=== PATIENT | female | born 1965 | race Caucasian/White ===

== ENCOUNTER 2019-12-02 11:58 | Outpatient (CLI) | payer SELFPAY ==
--- NOTE | ~2019-12-02 | XR_ITS ---
XR elbow RT min 3V 12/02/2019 12:25 Indication: Right elbow pain Procedure: 4 views right elbow Comparison: No prior studies for comparison. Findings: No significant joint effusion. There is soft tissue swelling adjacent to the medial humeral epicondyle. There is a corticated ossific density medial to the elbow seen on oblique view, likely s equela of remote trauma. No acute fractures identified. There are mild degenerative changes of the el bow. Impression: 1: No acute fracture. 2: Soft tissue swelling adjacent to the medial humeral epicondyle, nonspecific. If there is concern f or internal derangement of the elbow, correlation with MRI is recommended. Reviewed, dictated and finalized at location A. Impression: 1: No acute fracture. 2: Soft tissue swelling adjacent to the medial humeral epicondyle, nonspecific. If there is concern for internal derangement of the elbow, correlation with MR I is recommended.
== END 2019-12-02 11:59 | disposition home or self-care (01) ==
LOC: ANHIMG 12:12
PROVIDERS: PCP Family Medicine; Visit Provider Family Medicine
DX: S59.909A Unspecified injury of unspecified elbow, initial encounter (principal); M79.89 Other specified soft tissue disorders
CPT/HCPCS: 73080

== ENCOUNTER 2019-12-22 12:51 | Outpatient (CLI) | payer OTHER, SELFPAY ==
--- NOTE | ~2019-12-22 | MR_ITS ---
EXAMINATION: MR elbow RT wo con DATE: 12/22/2019 13:58 INDICATION: Posterior and medial right elbow pain, swelling and bruising post injury 3 weeks prior. TECHNIQUE: Magnetic resonance imaging (MRI) of the right elbow was performed without intravenous cont rast. Sequences included coronal, axial, and sagittal PD-weighted FS FSE and coronal, axial, and sagi ttal PD-weighted FSE. COMPARISON: None FINDINGS: Osseous/other: Normal alignment. Normal marrow signal with no marrow edema, fracture, osteochondral lesion or patho logic marrow replacing process. Mild osteoarthritis with regions of partial thickness cartilage loss in all 3 compartments of the right elbow joint. Tendons: Triceps, biceps brachii and brachialis tendons are normal. Moderate tendinopathy of the common flexo r tendon wad without discrete tear. There is feathery muscular edema extending into the proximal aspe ct of the flexor digitorum superficialis muscle consistent with low-grade muscle strain. Additional f eathery muscular edema at the ulnar side of the distal brachialis muscle also consistent with low-gra de strain. Additional moderate tendinopathy of the common extensor tendon wad with small intrasubstan ce partial-thickness tear at its lateral epicondylar origin. Ligaments: The lateral collateral ligament complex is normal. There is prominent thickening, mild increased sign al and small heterotopic ossicles along the medial collateral ligament complex consistent with chroni c or acute on chronic moderate grade partial tear. Cubital tunnel: Cubital tunnel is unremarkable with normal signal and caliber of the ulnar nerve. Fluid: Small glenohumeral joint effusion collecting primarily at the coronoid fossa. Focal subcutaneous eran a posterior to the olecranon process. IMPRESSION: 1. Moderate tendinopathy at the common flexor and extensor tendon wads with mild partial-thickness in trasubstance tear at the lateral epicondylar origin of the common extensor tendon wad. 2. Moderate grade partial tear of the medial collateral ligament complex with heterotopic ossificatio n which could be either chronic or acute on chronic. 3. Small low-grade strains of the talus and fracture digitorum superficialis muscles. 4. Mild osteoarthritis at the right elbow with small likely reactive joint effusion. No acute osseous abnormality. Reviewed, dictated and finalized at location A. IMPRESSION: 1. Moderate tendinopathy at the common flexor and extensor tendon wads with mil d partial-thickness intrasubstance tear at the lateral epicondylar origin of th e common extensor tendon wad. 2. Moderate grade partial tear of the medial collateral ligament complex with h eterotopic ossification which could be either chronic or acute on chronic. 3. Small low-grade strains of the talus and fracture digitorum superficialis mu scles. 4. Mild osteoarthritis at the right elbow with small likely reactive joint effu sarah. No acute osseous abnormality.
== END 2019-12-22 12:52 | disposition home or self-care (01) ==
PROVIDERS: PCP Family Medicine; Visit Provider Orthopaedic Surgery
DX: S59.909A Unspecified injury of unspecified elbow, initial encounter (principal); X58.XXXA Exposure to other specified factors, initial encounter; M19.021 Primary osteoarthritis, right elbow
CPT/HCPCS: 73221

== ENCOUNTER 2022-10-09 12:43 | Outpatient (CLI) | payer OTHER, SELFPAY ==
--- NOTE | ~2022-10-09 | XR_ITS ---
EXAMINATION: XR chest 2V DATE: 10/09/2022 13:17 INDICATION: Cough TECHNIQUE: PA and lateral views of the chest are obtained. COMPARISON: 10/28/2015 FINDINGS: The lungs are free of acute opacities. No pleural effusion or pneumothorax. The cardiomedia stinal silhouette is normal. There is mild thoracic spondylosis. IMPRESSION: 1. No acute cardiopulmonary abnormality. Reviewed, dictated and finalized at location F.
== END 2022-10-09 12:44 ==
LOC: MICIMG 12:46
PROVIDERS: PCP Family Medicine; Visit Provider Physician Assistant Medical
DX: R05.9 Cough, unspecified (principal); R06.00 Dyspnea, unspecified
CPT/HCPCS: 71046

== ENCOUNTER 2022-12-18 10:53 | Outpatient (CLI) | payer OTHER, SELFPAY ==
--- NOTE | ~2022-12-18 | XR_ITS ---
EXAMINATION: XR ankle RT min 3V INDICATION: Right ankle pain TECHNIQUE: Four views of the right ankle are obtained. COMPARISON: None available FINDINGS: Ankle alignment is normal. No fracture is identified. The soft tissues are unremarkable. Po sterior and plantar calcaneal enthesophytes are noted. There appears to be at least moderate osteoart hritis in the midfoot. IMPRESSION: 1. No acute osseous abnormality. Reviewed, dictated and finalized at location A.
== END 2022-12-18 10:54 ==
LOC: MICIMG 10:55
PROVIDERS: PCP Family Medicine; Visit Provider Physician Assistant
DX: M25.579 Pain in unspecified ankle and joints of unspecified foot (principal)
CPT/HCPCS: 73610

== ENCOUNTER 2023-01-14 11:29 | Outpatient (CLI) | payer OTHER, SELFPAY ==
--- NOTE | ~2023-01-14 | XR_ITS ---
EXAMINATION: XR abdomen/kub 1V DATE: 01/14/2023 12:00 INDICATION: Unspecified abdominal pain. TECHNIQUE: A supine view of the abdomen on 2 radiographs was obtained. COMPARISON: None. FINDINGS: There are no dilated loops of bowel. There is a moderate-sized volume of stool in the colon . Small calcifications in the pelvis are likely phleboliths. IMPRESSION: 1. Normal bowel gas pattern. 2. Small calcifications in the pelvis are likely phleboliths but small distal ureteral stone cannot b e excluded. Reviewed, dictated and finalized at location E. IMPRESSION: 1. Normal bowel gas pattern. 2. Small calcifications in the pelvis are likely phleboliths but small distal u reteral stone cannot be excluded.
== END 2023-01-14 11:30 ==
LOC: MICIMG 11:33
PROVIDERS: PCP Physician Assistant Medical; Visit Provider Physician Assistant Medical
DX: R10.9 Unspecified abdominal pain (principal)
CPT/HCPCS: 74018

== ENCOUNTER 2023-01-15 13:01 | Outpatient (CLI) | payer OTHER, SELFPAY ==
--- NOTE | ~2023-01-15 | CT_ITS ---
Non-contrast CT scan of the Abdomen and Pelvis Clinical indication: Kidney stone Technique: 2.5 mm axial scans were obtained through the abdomen and pelvis without intravenous or or al contrast. Dose reduction technique was used on this scan by utilizing automated exposure control a nd iterative reconstruction technique. The dose-length product (DLP) was 754.42 mGy-cm. Findings: Images through the lung bases reveal no abnormalities. 4 mm nonobstructing left renal stone present. No right renal stone. No ureteral stone or hydronephros is on either side. The liver, spleen, pancreas, gallbladder, and adrenals appear normal. There is no aortic aneurysm. There is no evidence of bowel obstruction. Images through the pelvis were performed. There is no evidence of ascites or lymphadenopathy. Urinary bladder unremarkable. No adnexal mass seen. Impression: 4 mm nonobstructing left renal stone. Reviewed, dictated and finalized at [facility]. Impression: 4 mm nonobstructing left renal stone.
== END 2023-01-15 13:02 ==
PROVIDERS: PCP Family Medicine; Visit Provider Physician Assistant Medical
DX: N20.0 Calculus of kidney (principal)
CPT/HCPCS: 74176

== ENCOUNTER 2024-05-22 11:14 | Outpatient (CLI) | payer OTHER, SELFPAY ==
--- NOTE | 2024-05-22 11:34 | ECG_ITS ---
Test Date: 2024-05-22 11:44:14 Measurements Intervals [place] Rate: 69 P: 134 LA: 130 QRS: 266 QRSD: 176 T: 66 QT: 468 QTc: 505 Interpretive Statements ELECTRONIC ATRIAL PACEMAKER ELECTRONIC VENTRICULAR PACEMAKER NO FURTHER INTERPRETATION IS POSSIBLE ATYPICAL ECG No previous ECG available for comparison Electronically Signed On 05-22-2024 11:45:19 BOBBIN DOFFER by Chris Alex D.O.
[2024-05-22 11:39] LABS: Basophils Percent Auto 0.6 % (0.2-1.2); Eosinophils Absolute Auto 0.2 K/mm3 (0-0.3); Eosinophils Percent Auto 2.3 % (0-4.4); Hematocrit 39.8 % (37.0-47.0); Hemoglobin 13.4 g/dL (12.0-15.0); Immature Granulocyte Absolute 0.02 K/mm3 (0.00-0.031); Immature Granulocyte Percent A 0.3 % (0-0.5); Lymphocytes Absolute Auto 2.37 K/mm3 (0.9-3.2); Lymphocytes Percent Auto 36.5 % (18.3-44.2); Mean Corpuscular HGB Conc 33.7 g/dl (32-36); Mean Corpuscular Hemoglobin 32.2 pg (26-34); Mean Corpuscular Volume 95.7 fl (80-100); Mean Platelet Volume 8.8 fl (7.4-10.4); Monocytes Absolute Auto 0.5 K/mm3 (0.1-0.6); Monocytes Percent Auto 7.9 % (2.6-8.5); Neutrophils Absolute Auto 3.4 K/mm3 (1.3-6.7); Neutrophils Percent Auto 52.4 % (45.5-73.1); Platelet Count Result 201 k/mm3 (150-375); Red Blood Count 4.16 M/mm3 (4.2-5.4); Red Cell Distribution Width 12.5 % (11.5-14.5); White Blood Count 6.5 K/mm3 (4.5-10.0)
[2024-05-22 12:01] LABS: Add Urine Microscopic? YES; Appearance Urine Clear (Clear); Bacteria Urine Rare /hpf; Bilirubin Urine Negative (Negative); Blood Urine Negative (Negative); Color Urine Yellow (Yellow); Glucose Urine UA Negative (Negative); Ketones Urine Negative (Negative); Leukocyte Esterase Ur 1+ LEU/UL (Negative); Nitrate Urine Negative (Negative); Non Pathogenic Casts 0-2; Protein Urine Negative (Negative); RBC Urine 0-2 /hpf (0-2); Squamous Epithelial Cell Urine Occasional /hpf (Few); Urobilinogen Urine 0.2 mg/dL (<2.0)
[2024-05-22 12:05] LABS: Anion Gap 5 mmol/L (4-12); Blood Urea Nitrogen 22 mg/dL (7-17); Calcium 9.3 mg/dL (8.4-10.2); Carbon Dioxide 32 mmol/L (22-30); Chloride 103 mmol/L (98-107); Estimated Glomerular Filt Rate 57; Glucose 106 mg/dL (65-110); Potassium 4.4 mmol/L (3.4-5.0); Sodium 140 mmol/L (137-145)
[2024-05-22 13:03] LABS: Hemoglobin A1C 5.7 % (<5.7)
== END 2024-05-22 11:15 | disposition home or self-care (01) ==
PROVIDERS: PCP Family Medicine; Visit Provider Nurse Practitioner Family
DX: E11.9 Type 2 diabetes mellitus without complications (principal); E53.8 Deficiency of other specified B group vitamins; E78.2 Mixed hyperlipidemia; I42.8 Other cardiomyopathies; I50.9 Heart failure, unspecified; R53.83 Other fatigue; I11.0 Hypertensive heart disease with heart failure; Z95.0 Presence of cardiac pacemaker
CPT/HCPCS: 36415; 80048; 81001; 83036; 85025; 87086; 93005

== ENCOUNTER 2024-07-29 08:05 | Outpatient (CLI) | payer OTHER, SELFPAY ==
[2024-07-29 09:33] LABS: Basophils Percent Auto 0.5 % (0.2-1.2); Eosinophils Absolute Auto 0.2 K/mm3 (0-0.3); Eosinophils Percent Auto 2.8 % (0-4.4); Hematocrit 39.3 % (37.0-47.0); Hemoglobin 13.2 g/dL (12.0-15.0); Immature Granulocyte Absolute 0.02 K/mm3 (0.00-0.031); Immature Granulocyte Percent A 0.4 % (0-0.5); Lymphocytes Percent Auto 35.5 % (18.3-44.2); Mean Corpuscular HGB Conc 33.6 g/dl (32-36); Mean Corpuscular Hemoglobin 32.1 pg (26-34); Mean Corpuscular Volume 95.6 fl (80-100); Mean Platelet Volume 8.4 fl (7.4-10.4); Monocytes Absolute Auto 0.5 K/mm3 (0.1-0.6); Monocytes Percent Auto 8.9 % (2.6-8.5); Neutrophils Absolute Auto 2.9 K/mm3 (1.3-6.7); Neutrophils Percent Auto 51.9 % (45.5-73.1); Platelet Count Result 176 k/mm3 (150-375); Red Blood Count 4.11 M/mm3 (4.2-5.4); Red Cell Distribution Width 12.4 % (11.5-14.5); White Blood Count 5.6 K/mm3 (4.5-10.0)
[2024-07-29 09:41] LABS: Add Urine Microscopic? YES; Appearance Urine Clear (Clear); Bacteria Urine None Seen /hpf; Bilirubin Urine Negative (Negative); Blood Urine Negative (Negative); Color Urine Yellow (Yellow); Glucose Urine UA Negative (Negative); Ketones Urine Negative (Negative); Leukocyte Esterase Ur Trace LEU/UL (Negative); Nitrate Urine Negative (Negative); Non Pathogenic Casts 0-2; Protein Urine Negative (Negative); RBC Urine 0-2 /hpf (0-2); Specific Grav Ur 1.015 (1.001-1.035); Squamous Epithelial Cell Urine None Seen /hpf (Few); Urobilinogen Urine 0.2 mg/dL (<2.0); WBC Urine 0-5 /hpf (0-3)
[2024-07-29 09:45] LABS: Albumin Level 4.5 g/dL (3.5-5.1); Anion Gap 11 mmol/L (4-12); Blood Urea Nitrogen 26 mg/dL (7-17); Calcium 9.2 mg/dL (8.4-10.2); Carbon Dioxide 27 mmol/L (22-30); Chloride 100 mmol/L (98-107); Estimated Glomerular Filt Rate 55; Glucose 88 mg/dL (65-110); Partial Thromboplastin Time 35.6 Seconds (22.3-36.8); Potassium 4.2 mmol/L (3.4-5.0); Prothrombin Time 13.6 Seconds (11.1-14.7); Sodium 138 mmol/L (137-145)
[2024-07-29 09:49] LABS: Urine Cotinine NEGATIVE
[2024-07-29 11:00] LABS: MRSA (PCR) DETECTED (NOT DETECTE)
--- OUTSIDE RECORDS SUMMARY | 2024-07-30 21:38 | XMS_ITS | Clinical Summary ---
Author Organization [facility] Address [address] [place] [address] Care Team Providers Care Personal Companion Name Role Phone Unknown, Provider Primary Care Provider Unavaila ble Source Comments [facility] Affiliates and Associated Physician Practices is amultiple site organization consisting of ambulatory clinics and hospital sitesin [place], [place], [place] and [place]. This disclosure is being madepursuant to the Care Everywhere program and may not contain all information available regarding this patient. Last updated 18.[facility] [employer] Allergies Active Allergy Reactions Criticality Noted Date Comments Minocycline Rash Medium 03/02/2021 Medications * Be aware that medications may not be up to date on this document. Alwaysverify current medications with the patient. Medication Sig Dispensed Refills Start Date End Date Status metFORMIN (GLUCOPHAGE) 500 MG tablet Take 500 mg by mouth 2 times daily with morning and evening meal Active FLUOXETINE HCL PO Active ATENOLOL PO Active ATORVASTATIN CALCIUM PO Active CLONAZEPAM PO Active Montelukast Sodium (SINGULAIR PO) Active INDOMETHACIN PO Active azithromycin (ZITHROMAX) 250 MG tabletIndications:Acut e sinusitis, recurrence not specified, unspecified location Take 2 tabs today, then 1 tab daily for next 4 days 6 tablet 03/02/2021 Active Active Problems No known active problems Social History Tobacco Use Types Packs/Day Years Used Date Smoking Tobacco: Some Days Smokeless Tobacco: Never Sex and Gender Information Value Date Recorded Sex Assigned at Not on file Gender Identity Not on file Sexual Orientation Not on file Last Filed Vital Signs Vital Sign Reading Time Taken Comments Blood Pressure 118/68 03/02/2021 12:33 PM CDT Pulse 68 03/02/2021 12:33 PM CDT Temperature 36.9 ??C (98.5 ??F) 03/02/2021 12:33 PM C DT Respiratory Rate 17 03/02/2021 12:33 PM CDT Oxygen Saturation - - Inhaled Oxygen Concentration - - Weight 97.5 kg (215 lb) 03/02/2021 12:33 PM CDT Height 171.5 cm (5' 7.5 ) 03/02/2021 12:33 PM CD T Body Mass Index 33.18 03/02/2021 12:33 PM CDT Plan of Treatment Health Maintenance Due Date Last Done Comments COLOGUARD (AGES 45-75) - COL ON CA SCREENING 1965 COLON MONITORING 1965 COLONOSCOPY - COLON CA SCREENING 1965 CT COLONOGRAPHY - COLON CA SCREENING 1965 Colorectal Cancer Screening 1965 FIT - COLON CA SCREENING 1965 FLEX SIG - COLON CA SCREENING 1965 MAMMOGRAM 1965 PAP SMEAR 1965 HIV SCREENING 1980 HEPATITIS C SCREENING 10/14/1983 DTAP/TDAP/TD VACCINES (1 - Tdap) 1984 HEPATITIS B VACCINE (1 of 3 - 19+ 3-dose series) 1984 PNEUMOCOCCAL VACCINE 50+ (1 of 2 - PCV) 1984 PNEUMOCOCCAL VACCINE (1 of 2 - PCV) 1984 ZOSTER VACCINE (1 of 2) 10/19/2015 SCREENING FOR DIABETES 03/02/2021 COVID-19 VACCINE (1 - 2023-2 5 season) 2024 INFLUENZA VACCINE (#1) 2024 DEPRESSION SCREENING 07/08/2024 HIB VACCINE Aged Out No longer eligi ble based on patient's age to complete this topic HPV VACCINE Aged Out No longer eligi ble based on patient's age to complete this topic MENINGOCOCCAL (Group B) VACCINE Aged Out No longer eligible based on patient's age to complete this topic MENINGOCOCCAL VACCINE Aged Out No edgar abdirashid eligible based on patient's age to complete this topic Care Teams Personal Companion Relationship Specialty Start Date End Date Unknown, Provider PCP - General 03/02/21
--- OUTSIDE RECORDS SUMMARY | 2024-07-30 21:38 | XMS_ITS | Patient Health Summary ---
Author Organization [facility] Address [address] [place] [address] Care Team Providers Care Pit Boss Name Role Phone Unknown, Provider Primary Care Provider Unavaila ble Note from [facility],non-owned Affiliates and Associated Physician Practices is amultiple site organization consisting of ambulatory clinics and hospital sitesin [place], [place], [place] and [place]. This disclosure is being madepursuant to the Care Everywhere program and may not contain all information available regarding this patient. Last updated 18.[facility] [employer] Allergies * Minocycline(Rash) -Medium Criticality Medications * Be aware that medications may not be up to date on this document. Alwaysverify current medications with the patient. * metFORMIN (GLUCOPHAGE) 500 MG tablet Take 500 mg by mouth 2 times daily with morning and evening meal * FLUOXETINE HCL PO * ATENOLOL PO * ATORVASTATIN CALCIUM PO * CLONAZEPAM PO * Montelukast Sodium (SINGULAIR PO) * INDOMETHACIN PO * azithromycin (ZITHROMAX) 250 MG tablet(Started 03/02/2021) Take 2 tabs today, then 1 tab daily for next 4 days Active Problems No known active problems Social [...] Mass Index 33.18 03/02/2021 12:33 PM CDT Care Teams Pit Boss Relationship Specialty Start Date End Date Unknown, Provider PCP - General 03/02/21
--- OUTSIDE RECORDS SUMMARY | 2024-07-30 21:38 | XMS_ITS | Referral Summary ---
Author Organization [facility] Address [address] [place] [address] Care Team Providers Care Foot Cutter Name Role Phone Unknown, Provider Primary Care Provider Unavaila ble Source Comments [facility],non-[facility] Affiliates and Associated Physician Practices is amultiple site organization consisting of ambulatory clinics and hospital sitesin [place], [place], [place]. This disclosure is being madepursuant to the Care Everywhere program and may not contain all information available regarding this patient. Last updated 18.[facility] [employer] Allergies Active Allergy Reactions Criticality Noted Date [...] 03/02/2021 12:33 PM CDT Plan of Treatment Not on file Care Teams Foot Cutter Relationship Specialty Start Date End Date Unknown, Provider PCP - General 03/02/21
--- OUTSIDE RECORDS SUMMARY | 2024-07-30 21:38 | XMS_ITS | Clinical Summary ---
Author Organization [facility] Address [address] [place] [address]. [place] [address] [place] [address] Care Team Providers Care Pin Drafter Name Role Phone Kendy Mckeon MD Primary Care Provider [phone] Allergies Active Allergy Reactions Criticality Noted Date Comments Amoxicillin-Pot Clavulanate GI Upset 10/06/19 23 Minocycline Unknown 05/02/2016 Shellfish-Derived Products Anaphylaxis High 08/14/19 24 Medications clonazePAM 1 MG tablet Take 1 tablet (1 mg total) by mouth nightly at bedtime. 6 Active atorvastatin 10 MG tablet Take 1 tablet (10 mg total) by mouth nightly at bedtime. 6 Active famotidine 20 MG tablet Take 1 tablet (20 mg total) by mouth daily. Active montelukast 10 MG tablet Take 1 tablet (10 mg total) by mouth nightly at bedtime. Active albuterol sulfate HFA 108 (90 Base) MCG/ACT inhaler Inhale 2 puffs into the lungs every 6 (six) hours as needed. 2 Active ipratropium-alb uterol (DUONEB) 0.5-2.5 (3) MG/3ML Solution Take 3 mLs by nebulization every 4 (four) hours as needed. Pt unsure of dose 3 Active FLUoxetine (PROZAC) 40 MG capsule Take 1 capsule (40 mg total) by mouth daily. Active metFORMIN (GLUCOPHAGE) 1000 MG tablet Take 0.5 tablets (500 mg total) by mouth 2 (two) times daily with meals. Active HYDROcodone-abigail taminophen (NORCO) 10-325 MG tabletIndicatio ns:Acute Pain < 3 Day Supply Take 1 tablet by mouth every 6 (six) hours as needed. Indications: Acute Pain < 3 Day Supply 10 tablet 4 Active gabapentin (NEURONTIN) 100 MG capsule Take 1 capsule (100 mg total) by mouth 2 (two) times a day. 4 Active vitamin B-12 (CYANOCOBALAMIN ) (CYANOCOBALAMIN ) 1000 mcg tablet Take 1 tablet (1,000 mcg total) by mouth daily. Active ENTRESTO 24-26 MG tablet Take 1 tablet by mouth 2 (two) times daily. 180 tablet 3 4 Active spironolactone (ALDACTONE) 25 MG tablet TAKE 1 TABLET BY MOUTH 2 TIMES A DAY 180 tablet 4 Active carvedilol (COREG) 6.25 MG tablet TAKE 1 TABLET BY MOUTH 2 TIMES A DAY WITH FOOD 180 tablet 4 Active Active Problems Problem Noted Date Diagnosed Date Biventricular implantable ca rdioverter-defibrillator (ICD) in situ 08/15/2023 CHF exacerbation ([facility]) 08/14/2023 LBBB (left bundle branch block) 08/11/2023 NICM (nonischemic cardiomyopathy) ([facility]) 05/02/2023 Hypertension 05/02/2023 Diabetes mellitus ([facility]) 05/02/2023 Mild intermittent asthma, uncomplicated ([facility] ) 05/02/2023 Resolved Problems Problem Noted Date Diagnosed Date Resolved Date Shortness of breath 04/30/2023 05/02/20 Congestive heart failure (CH F) ([facility]) 04/19/2023 05/02/2023 Chest pain 04/19/2023 05/02/2023 HF (heart failure) ([facility]) 04/17/2023 05/02/2023 Encounters Date Type Department Care Team Description 05/25/2024 Telephone [facility] [address] [place] [address] Lenin Cano MD Surgical Clearance 05/05/2024 9:30 AM CDT Allied Health/Nurse Visit [facility] [address] [place] [address] Damian Martini MD Remote Device Check (Routine [place] Remote ICD check.) from Last 3 Months Immunizations Name Administration Dates Next Due Influenza (Generic) 04/28/2021 MODERNA COVID-19 (12+) MRNA, LNP-S, PF, 100 MCG/ 0.5 ML DOSE 05/16/2021,09/09/2020,07/28/2020 Tdap (Adacel) 04/09/2023 Tdap (Generic) 01/17/2016 Family History Medical History Relation Comments CABG Father Heart Attack Father 70's Lung Cancer Father Kidney Disease Mother Melanoma Mother Heart Disease Paternal Grandfather Lymphoma Sister nonhodgkins Relation Status Comments Father Mother Paternal Grandfather Sister Social History Tobacco Use Types Packs/Day Years Used Date Smoking Tobacco: Former Smokeless Tobacco: Never Tobacco Cessation:Counseling Given: Not Answered Alcohol Use Standard Drinks/Week Comments Yes 0 (1 standard drink = 0.6 oz pur e alcohol) occasional [facility] Utilities Answer Date Recorded In the past 12 months has e [employer], gas, oil, or water [facility] threatened to shut off services in your home? No 08/14/2023 Humiliation, Afraid, Rape, and Kick questionnair e Answer Date Recorded Within the last year, have y ou been afraid of your partner or ex-partner? No 08/14/2023 Within the last year, have y ou been humiliated or emotionally abused in other ways by your partner or ex-partner? No Within the last year, have y ou been kicked, hit, slapped, or otherwise physically hurt by your partner or ex-partner? No 08/14/2023 Within the last year, have y ou been raped or forced to have any kind of sexual activity by your partner or ex-partner? No 08/14/2023 AUDIT-C Answer Date Recorded Q1: How often do you have a drink containing alc ohol? Never 02/18/2020 Average Number of Drinks Not on file 020 Frequency of Binge Drinking Not on file 02/05 Overall Financial Resource Strain (CARDIA) Answe r Date Recorded How hard is it for you to pa y for the very basics like food, housing, medical care, and heating? Not very hard 08/14/2023 Hunger Vital Sign Answer Date Recorded Within the past 12 months, y ou worried that your food would run out before you got the money to buy more. Sometimes true Within the past 12 months, t he food you bought just didn't last and you didn't have money to get more. Sometimes true 01/2024 PRAPARE - Transportation Answer Date Re corded In the past 12 months, has l ack of transportation kept you from medical appointments or from getting medications? No 01/2024 In the past 12 months, has l ack of transportation kept you from meetings, work, or from getting things needed for daily living? No 08/14/2023 Housing Stability Vital Sign Answer Mohsen e Recorded In the last 12 months, was t here a time when you were not able to pay the mortgage or rent on time? No 08/14/2023 In the last 12 months, how many places have you lived? 1 08/14/2023 In the last 12 months, was t here a time when you did not have a steady place to sleep or slept in a senior care (including now)? No 08/14/2023 Comments No Sex and Gender Information Value Date Recorded Sex Assigned at Not on file Legal Sex Female 8:14 PM CDT Gender Identity Not on file Sexual Orientation Not on file Last Filed Vital Signs Vital Sign Reading Time Taken Comments Blood Pressure 114/68 03/17/2024 9:32 AM CDT Pulse 68 03/17/2024 9:32 AM CDT Temperature 36.6 ??C (97.8 ??F) 01/05/2024 7:38 PM CD T Respiratory Rate 18 01/05/2024 7:38 PM CDT Oxygen Saturation 100% 03/17/2024 9:32 AM CDT Inhaled Oxygen Concentration - - Weight 88.9 kg (196 lb) 03/17/2024 9:32 AM CDT Height 172.7 cm (5' 8 ) 03/17/2024 9:32 AM CDT Body Mass Index 29.8 03/17/2024 9:32 AM CDT Plan of Treatment Upcoming Encounters Date Type Department Care Team (Late st Contact Info) Description 08/17/2024 9:50 AM FINANCIAL INSTITUTION TREASURER Allied Health/Nurse Visit [facility], [address] [place] [address] Damian Martini MD [facility]. [address] [place], [place] [address] 09/15/2024 9:30 AM CDT Office Visit [facility], [address] [address] Lenin Cano MD [facility]. [address] [place], [place] [id number] 09/15/2024 10:00 AM CDT Office Visit [facility], [address] [place] [address] Rut Mercedes PA 3 [facility] [address] [facility] [place], [place] [address] Health Maintenance Due Date Last Done Comments Cervical Cancer Screening Pa p Smear (Age 30 to 64) Every 3 Years 1965 Colorectal Cancer Screening Colonoscopy (10 Years) 1965 Kidney Health Evaluation 1965 Hemoglobin A1C 1965 Annual Physical 1968 Pneumococcal Vaccine: Pediatrics (0 to 5 Years) and At-Risk Patients (6 to 64 Years) (1 of 2 - PCV) 10/19/1971 PHQ-2 (Physician [place]) 1977 Diabetes: Retinopathy Eye Exam 10/19/1983 Hepatitis C 10/19/1983 Hepatitis B Vaccines (1 of 3 - 19+ 3-dose series) 1984 Cervical Cancer Screening Pa p with HPV Testing (Age 30 to 64) Every 5 Years 10/19/1995 Cervical Cancer Screening wi th HPV 10/19/1995 Mammogram Screening 2005 Zoster Vaccines (1 of 2) 10/19/2015 COVID-19 Vaccine (4 - 2023-2 5 season) 2024 05/16/2021, 09/09/2020, 07/28/2020 Influenza Adult (#1) 2024 04/28/2021 Lipid Panel 04/18/2024 04/18/2023 DTaP, Tdap and Td Vaccines ( 3 - Td or Tdap) 04/09/2033 04/09/2023, 01/17/2016 Meningococcal B Vaccine Aged Out No l onger eligible based on patient's age to complete this topic Meningococcal Vaccine Aged Out No edgar abdirashid eligible based on patient's age to complete this topic RSV Immunizations Under 20 Months Aged Out No longer eligible b ased on patient's age to complete this topic Goals Goal Patient Goal Type Associated Problems Recent Progress Patient-Stated? Author Patient will return to prior living situation and remain independent in ADLs upon discharge from hospital Lifestyle No Marely Iniguez RN Medical Devices Implanted Type Area Lockstitch Sleeve Maker Device Identifier Shelf Expiration Date Model / Serial / Lot Sja Icd-08/14/2023 Implanted:Qty : 1 on 08/14/2023 by Lenin Cano MD ICD [facility] 05/07/2025 [id number] / [id number] / Rv Lead Pacemaker [facility] Durata-08/14/19 24 Implanted:Qty : 1 on 08/14/2023 by Lenin Cano MD Lead Implant [facility] [id number] 01/04/2026 7122Q/[id number] / [id number] / Ra Lead Implant- 024 Implanted:Qty : 1 on 08/14/2023 by Lenin Cano MD Lead Implant [facility] [id number] 05/07/2026 / [id number] / Lv Quartet Lead-Cs- 024 Implanted:Qty : 1 on 08/14/2023 by Lenin Cano MD Lead Implant [facility] [id number] 12/05/2025 1458Q-86 / [id number] / Procedures Procedure Name Priority Date/Time Associated Diagnosis Comments LIPID PANEL Routine 04/18/2023 4:00 AM CDT from Last 3 Months or Most Recently Relevant to Health Maintenance Results * LIPID PANEL (04/18/2023 4:00 AM CDT) CHOLESTEROL 165 <200 MG/DL 04/18/2023 4:32 AM CDT [facility] TRIGLYCERIDES 123 <150 MG/DL 04/18/2023 4:32 AM CDT [facility] HDL 52 >40.0 MG/DL 04/18/2023 4:32 AM CDT [facility] LDL (CALCULATED) 88 <100 MG/DL 04/18/20 4:32 AM CDT [facility] NON HDL CHOLESTEROL 113 <130 MG/DL 04/18 4:32 AM CDT [facility] Comment: NOTE: WHEN THE TRIGLYCERIDES ARE >200 mg/dL, NON HDL C IS A SECONDARY TARGET OF THERAPY, WITH A GOAL 30 mg/dL HIGHER THAN THE IDENTIFIED LDL C GOAL. CHOL/HDL RATIO 3.2 0.0 - 4.5 04/18/2023 4:32 AM CDT [facility] VLDL CALCULATION 25 5 - 55 MG/DL 04/18/2023 4:32 AM CDT [facility] LIPID INTERPRETATION 04/18/2023 4:32 AM CDT [facility] Comment: NIH CONCENSUS REPORT RECOMMENDATIONS: ?ADULT ?CHILD ??LOW RISK: ?CHOLESTEROL ? <200 ? <170 ?TRIGLYCERIDE ?<150 ?--- ?HDL ? >=60 ?--- ?LDL ? <100 ? <110 ??BORDERLINE: ?CHOLESTEROL ? 200-239 ?? 170-199 ?TRIGLYCERIDE ?150-199 ? --- ?HDL ?40-59 ?--- ?LDL ? 100-159 ?? 110-129 ??HIGH RISK: ?CHOLESTEROL ? >=240 ?>=200 ?TRIGLYCERIDE ?>=200 ? --- ?HDL ?<40 ?--- ?LDL ? >=160 ?>=130 04/18/2023 4:00 AM CDT Fidencio Tadeo APRN LABORATORY Final Re sult [facility] [address] [place] [address], from Last 3 Months or Most Recently Relevant to Health Maintenance Additional Health Concerns Infection Onset Date Last Indicated MRSA Comment:08/13/23 juliocesar BARCENAS) 08/13/2023 08/13/2023 Insurance [employer] Advance Directives Documents on File Type Date Recorded Patient Supervisor Rough End Expl anation Power of Burglary Investigator 08/14/2023 SUBHASH DILL * Full Code (Latest Code Status on File) Date Activated Date Inactivated Comments 08/14/2023 6:02 PM 08/15/2023 3:20 PM * Full Code Date Activated Date Inactivated Comments 04/19/2023 2:46 PM 04/19/2023 7:59 PM * Full Code Date Activated Date Inactivated Comments 04/17/2023 3:58 PM 04/19/2023 1:15 PM Care Teams Pin Drafter Relationship Specialty Start Date End Date Kendy Mckeon MD [address] [place] [address] PCP - General FAMILY PRACTICE 05/30/18
--- OUTSIDE RECORDS SUMMARY | 2024-07-30 21:38 | XMS_ITS | Encounter Summary ---
Author Organization [facility] Address [address] [place] [address]. [place] [address] [place] [address] Care Team Providers Care Carbon Sequestration Plant Manager Name Role Phone Kendy Mckeon MD Primary Care Provider [phone] Encounter Details Date Type Department Care Team (Latest Contact Info) Description 04/17/2023 Hospital Encounter Lynda Marti MD [address] [place], [place] [id number] Social History Tobacco Use Types Packs/Day Years Used Date Smoking Tobacco: Former Smokeless Tobacco: Never Alcohol Use Standard Drinks/Week Comments Yes 0 (1 standard drink = 0.6 oz pur e alcohol) occasional [facility] Utilities Answer Date Recorded In the past 12 months has e electric, gas, oil, or water company threatened to shut off services in your [...] place to sleep or slept in a [place] facility (including now)? No 08/14/2023 Comments No Sex and Gender Information Value Date Recorded Sex Assigned at Not on file Legal Sex Female 8:14 PM CDT Gender Identity Not on file Sexual Orientation Not on file documented as of this encounter Functional Status * Question Answer Date of Assessment Author Status Do you have serious difficul ty walking or climbing stairs? No 08/14/2023 6:26 PM Colten Solorzano RN Active * Question Answer Date of Assessment Author Status Do you have difficulty dress ing or bathing? No 08/14/2023 6:26 PM Colten Solorzano RN Active Because of a physical, menta l, or emotional condition, do you have difficulty doing errands alone such as visiting a doctor's office or shopping? No 08/14/2023 6:26 PM Colten Solorzano RN Active * Are you deaf or do you have serious difficulty hearing Answer Date of Assessment Author Status No 04/17/2023 5:24 PM Verna Wylie RN Active * Are you blind or do you have serious difficulty seeing, even when wearing glasses? Answer Date of Assessment Author Status No 04/17/2023 5:24 PM Verna Wylie RN Active * Do you have serious difficulty walking or climbing stairs? Answer Date of Assessment Author Status No 04/17/2023 5:24 PM Verna Wylie RN Active * Do you have difficulty dressing or bathing? Answer Date of Assessment Author Status No 04/17/2023 5:24 PM Verna Wylie RN Active * Because of a physical, mental, or emotional condition, do you have difficulty doing errands alone such as visiting a doctor's office or shopping? Answer Date of Assessment Author Status No 04/17/2023 5:24 PM Verna Wylie RN Active documented as of this encounter Mental Status * Question Answer Entry Date Author Status Because of a physical, menta l, or emotional condition, do you have serious difficulty concentrating, remembering, or making decisions? No 08/14/2023 6:26 PM Colten Solorzano RN Active * Because of a physical, mental, or emotional condition, do you have serious difficulty concentrating, remembering, or making decisions? Answer Entry Date Author Status No 04/17/2023 5:24 PM Verna Wylie RN Active documented in this encounter Plan of Treatment Upcoming Encounters Date Type Department Care Team (Late st Contact Info) Description 08/17/2024 9:50 AM CATASTROPHE CLAIMS SUPERVISOR Allied Health/Nurse Visit [facility], [address] [address] Damian Martini MD Three [facility]. [address] [place] [address] 09/15/2024 9:30 AM CDT Office Visit [facility], [address] [place] [address] Lenin Cano MD [facility]. [address] [place] [address] 09/15/2024 10:00 AM CDT Office Visit [facility], [address] [place] [address] Rut Mercedes PA 3 [facility] [address] [place], [place] [address] documented as of this encounter Goals Goal Patient Goal Type Associated Problems Recent Progress Patient-Stated? Author Patient will return to prior living situation and remain independent in ADLs upon discharge from hospital Lifestyle No Marely Iniguez, RN documented as of this encounter Visit Diagnoses Not on filedocumented in this encounter Additional Health Concerns Infection Onset Date Last Indicated Resolved Time COVID-19 Rule Out 04/17/2023 04/17/2023 04/17/2023 11:44 AM CDT MRSA Comment:08/13/23 juliocesar (SENG) 08/13/2023 08/13/2023 documented as of this encounter Care Teams Carbon Sequestration Plant Manager Relationship Specialty Start Date End Date Kendy Mckeon MD [address] [place] [address] PCP - General FAMILY PRACTICE 05/30/18 documented as of this encounter
== END 2024-07-29 08:06 | disposition home or self-care (01) ==
LOC: ANHSURGERY 08:10
PROVIDERS: PCP Family Medicine; Visit Provider Orthopaedic Surgery
DX: M17.11 Unilateral primary osteoarthritis, right knee (principal); Z01.818 Encounter for other preprocedural examination
CPT/HCPCS: 80048; 80307; 81001; 82040; 85025; 85610; 85730; 87641

== ENCOUNTER 2024-08-12 02:31 | Day surgery (SDC) | payer OTHER, SELFPAY ==
--- NOTE | 2024-07-29 07:53 | PC.NURSE ---
Report to the Outpatient Waiting Room, entrance under the green pavilion located off [facility], at time __6AM on date 08/12/24 . Planned Procedure Time: _7:30 AM .? Time changes happen often and if your time is changed the preop area will call you the afternoon before. - You and your visitor will be asked to self-screen and do not enter if you have any COVID symptoms. Please call surgeon if you need to reschedule. - A mask is optional within the hospital at this time. Patients may have clear liquids (water, carbonated beverages, clear teas, apple juice) until 3 hours prior to surgery( 4:30 AM) with a maximum of 20 ounces. - No food from midnight until time of surgery and no smoking. This includes no chewing gum, candy or mints. Take only the following medications with a SIP of water on the morning of surgery: CARVEDILOL,_FLUOXETINE,GABAPENTIN, INHALER IF NEEDED DO NOT STOP ANY OF YOUR OTHER PRESCRIPTION MEDICATIONS PRIOR TO SURGERY EXCEPT THE FOLLOWING Medications to discontinue per physician ___HOLD ALL VITAMINS 3 DAYS PRE OP MAY TAKE TYLENOL IF NEEDED FOR PAIN Date to take last dose_08/08/24 TOTAL JOINT CLASS TODAY 07/29/24 AT 10 AM Please no make-up, nail anguillan, hairspray, perfume, deodorant, or body powder the day of surgery.? No jewelry (including any body piercings) or valuables the day of surgery, leave them at home.? Please take a shower or bath the night before, or the morning of, surgery with an antibacterial soap.? Wear comfortable, loose fitting clothing.? Children are encouraged to wear pajamas. - Jewelry must be removed prior to entering the operating room.? Rings and piercings that are not removed may be cut off. - The hospital will not accept responsibility for valuables.? - Please leave all valuables, including medications, at home the day of surgery. If you are going home after surgery, a licensed ross carrier driver must drive you home.? - NO public transportation without another adult if you receive anesthesia. - We recommend that an adult stay with you for 24 hours following discharge. - We also recommend that you do not drive, make important decision, drink alcoholic beverages, or take any drugs that were not prescribed by your health care provider for at least 24 hours after your discharge time. Follow any additional instructions given to you from your surgeon. VERBAL AND WRITTEN instructions given to _PATIENT and asked if any additional questions and then verbalized understanding. Patient advised to call surgeon office or pre surgery nurse liaison [phone] if any additional questions.
[2024-07-29 08:15] VITALS: BMI 31.1
[2024-07-29 09:03] VITALS: BP 113/73; PULSE 70; RESP 18; TEMP 36.6; O2SAT 100
--- NOTE | 2024-08-11 13:02 | P.PNAN_ITS ---
Anes - Eval Pre Procedure Procedure: Operation Date: 08/12/24 07:30 Proposed Procedures p Right Total Knee Arthroplasty - Shamar Reyes MD Date/Time: 08/11/24 13:02 Pre Op Diagnosis: Rt Knee O.A. Patient Data Age: 58 Gender: F Height: 1.71 m Weight: 91.6 kg Last Vital Signs Temp 97.9 F 07/29/24 09:03 Pulse 70 07/29/24 09:03 Resp 18 07/29/24 09:03 BP 113/73 07/29/24 09:03 Pulse Ox 100 07/29/24 09:03 O2 Del Method Room Air 07/29/24 09:03 Allergies Allergy/AdvReac Type Severity Reaction Status Date / Time amoxicillin Allergy Unknown UPSET Verified 08/07/24 11:34 STOMACH clavulanic acid Allergy Unknown UPSET Verified 08/07/24 11:34 STOMACH minocycline Allergy Unknown Hives Verified 08/07/24 11:34 Home Medications ?Medication ?Instructions ?Recorded ?Confirmed ?Type blood sugar diagnostic (Blood #50 ea 10/09/22 07/31/24 Rx Glucose Test strips) blood-glucose meter (Accu-Chek #1 ea 10/09/22 07/31/24 Rx Guide Me Glucose Meter) fluticasone propionate 115 2 puff inhalation Q12H #8 grams 10/09/22 07/31/24 Rx mcg-salmeterol 21 mcg/actuation HFA inhaler (Advair HFA) blood sugar diagnostic (Blood #50 ea 10/10/22 07/31/24 Rx Glucose Test strips) blood-glucose meter #1 ea 10/10/22 07/31/24 Rx ipratropium 0.5 mg-albuterol 3 mg 3 ml inhalation QID PRN shortness 10/10/22 07/31/24 Rx (2.5 mg base)/3 mL nebulization of breath or wheezing #90 mL soln lancets (Accu-Chek Softclix #100 ea 10/10/22 07/31/24 Rx Lancets) Entresto 24 mg-26 mg tablet 1 tablet PO BID #60 tabs 04/25/23 07/31/24 Rx (sacubitril-valsartan) spironolactone 25 mg tablet 25 mg PO BID #60 tabs 04/26/23 07/31/24 Rx carvedilol 6.25 mg tablet 6.25 mg PO Q12H 10/17/23 07/31/24 History famotidine 40 mg tablet See Rx Instructions .Route 03/04/24 07/31/24 Rx .COMPLEX #30 tabs montelukast 10 mg tablet See Rx Instructions .Route 03/04/24 07/31/24 Rx .COMPLEX #90 tabs gabapentin 100 mg capsule 100 mg PO TID #90 caps 05/05/24 07/31/24 Rx clonazepam 1 mg tablet 1 mg PO DAILY PRN anxiety #30 tabs 05/25/24 07/31/24 Rx fluoxetine 40 mg capsule See Rx Instructions .Route 05/25/24 07/31/24 Rx .COMPLEX #30 caps semaglutide 0.25 mg or 0.5 mg (2 0.5 mg (0.736 mL) subcut WEEKLY #3 07/14/24 07/31/24 Rx mg/3 mL) subcutaneous pen injector mL (Ozempic) acetaminophen 650 mg 650 mg PO Q12H PRN pain 07/29/24 07/31/24 History tablet,extended release (Arthritis Pain Reliever) atorvastatin 10 mg tablet (Lipitor) 10 mg PO QPM 07/29/24 07/31/24 History chlorhexidine gluconate 4 % 1 applic topical ONCE #237 mL 07/29/24 07/31/24 Rx topical liquid (Hibiclens) cyanocobalamin (vitamin B-12) 1,000 mcg PO DAILY 07/29/24 07/31/24 History 1,000 mcg capsule Patient hx anesthesia problems: none Family hx anesthesia problems: none Results Review: All pre-operative results and documents have been reviewed as part of the pre- operative evaluation. [facility] Past Medical History Medical History (Updated 08/11/24 @ 13:03 by Raghu Marshall Jr., RN FIRST ASSISTANT) Gastroesophageal reflux Depression Other fatigue Nonischemic cardiomyopathy Biventricular ICD (implantable cardioverter-defibrillator) in place CHF (congestive heart failure) ICD implant 2022 Pes planus of both feet Hallux rigidus of both feet Arthritis of foot, degenerative Acute asthma exacerbation Joint effusion Left knee DJD Right knee DJD Degenerative joint disease of knee Bilateral knee pain Anxiety Current mild episode of major depressive disorder Essential (primary) hypertension (12/01/15) Mixed hyperlipidemia Moderate asthma Type 2 diabetes mellitus without complications Surgical History Surgical History H/O toe surgery History of bilateral knee arthroplasty Family History Family History Father Lung cancer Sibling Non-Hodgkin lymphoma Other Family history of arthritis Family history of malignant neoplasm Hypertension Social History Social History Smoking status: Never smoker Second hand tobacco smoke exposure: No Additional smoking assessment comments: DENIES ANY FORM OF TOBACCO USE Alcohol intake: current Alcohol use details: ONE DRINK EVERY 2 WKS Substance use: current Substance use type: does not use Other substance usage details: edibles for knee pain Last use: 07/28/24 Lack of Transportation: No Lack of Food: Never True Current Housing: I Have Housing Concerned About Future Housing: No Difficulty Paying Gas/Electric Bills: No Difficulty Paying for Meds: No Currently Unemployed: No Education: Bachelor's Degree Difficulty w/ Childcare or Family Care: No Living arrangements: with family Occupation/Education: occupation Gender identity (if verbalized by the patient): Female Spiritual care concerns: No Exam Day of Procedure 08/11/24 13:02 Patient weight: obese Heart: other (AV Paced with AICD/pacer)
[2024-08-12] VITALS (22 sets, daily range): BP systolic 92–115; BP diastolic 61–78; PULSE 65–80; RESP 11–18; TEMP 35.8–37.2; O2SAT 92–100
--- NOTE | ~2024-08-12 | XR_ITS ---
Right Knee Technique: Portable AP and crosstable lateral views Clinical History: Status post TKR Findings: Patient is status post total knee replacement. Orthopedic hardware alignment appears anatom ic. No hardware complication is evident. Subcutaneous emphysema and swelling is likely postoperative in nature. No acute osseous fracture is seen. Impression: Status post total knee replacement, without evidence of hardware complication. Reviewed, dictated and finalized at location . KLE STRAP SEWER Impression: Status post total knee replacement, without evidence of hardware complication.
--- OUTSIDE RECORDS SUMMARY | 2024-08-12 02:33 | XMS_ITS | Referral Summary ---
Author Organization [facility] Address [address] [place] [address] Care Team Providers Care Ethanol Quality Leader Name Role Phone Unknown, Provider Primary Care Provider Unavaila ble Source Comments [facility] Affiliates and Associated Physician Practices is amultiple site organization consisting of ambulatory clinics and hospital sitesin [place], [place], [place] and [place]. This disclosure is being madepursuant to the Care Everywhere program and may not contain all information available regarding this patient. Last updated 18.[facility] Living Proof Allergies Active Allergy Reactions Criticality Noted Date [...] of Treatment Not on file Care Teams Ethanol Quality Leader Relationship Specialty Start Date End Date Unknown, Provider PCP - General 03/02/21
--- OUTSIDE RECORDS SUMMARY | 2024-08-12 02:33 | XMS_ITS | Clinical Summary ---
Author Organization [facility] Address [address] [place] [address] Care Team Providers Care Air Cargo Specialist Supervisor Name Role Phone Kendy Mckeon MD Primary Care Provider [phone] Allergies Active Allergy Reactions Criticality Noted Date [...] rdioverter-defibrillator (ICD) in situ 08/15/2023 CHF exacerbation ([facility]) 08/14/2023 LBBB (left bundle branch block) 08/11/2023 NICM (nonischemic cardiomyopathy) ([facility]) 05/02/2023 Hypertension 05/02/2023 Diabetes mellitus ([facility]) 05/02/2023 Mild intermittent asthma, uncomplicated ([facility] ) 05/02/2023 Resolved Problems Problem Noted Date Diagnosed Date Resolved Date Shortness of breath 04/30/2023 05/02/20 Congestive heart failure (CH F) ([facility]) 04/19/2023 05/02/2023 Chest pain 04/19/2023 05/02/2023 HF (heart failure) ([facility]) 04/17/2023 05/02/2023 Encounters Date Type Department Care Team Description 05/25/2024 Telephone [facility] [address], [address] [place] [address] Lenin Cano MD Surgical Clearance from Last 3 Months Immunizations Name Administration [...] = 0.6 oz pur e alcohol) occasional [employer] Utilities Answer Date Recorded In the past 12 months has [employer] gas, oil, or water [employer] threatened to shut off services in your [...] place to sleep or slept in a fci (including now)? No 08/14/2023 Comments No Sex [...] st Contact Info) Description 08/17/2024 9:50 AM AIRPLANE ELECTRICAL REPAIRER Allied Health/Nurse Visit [facility], [address] [place] [address] Damian Martini MD [facility] [address] [place], [place] [address] 09/15/2024 9:30 AM CDT Office Visit [facility] [address] [facility], [address] [place], [place] [address] Lenin Cano MD Three [facility]. [address] [place], [place] [address] 09/15/2024 10:00 AM CDT Office Visit [facility] [place], [place] [address] Rut Mercedes PA [address] [facility] [address] [place], [place] [address] Health Maintenance Due Date Last Done Comments Cervical Cancer Screening Pa p Smear (Age 30 to 64) Every 3 Years 1965 Colorectal Cancer Screening Colonoscopy (10 Years) 1965 Kidney Health Evaluation 1965 Hemoglobin A1C 1965 Annual Physical 1968 Pneumococcal Vaccine: Pediatrics (0 to 5 Years) and At-Risk Patients (6 to 64 Years) (1 of 2 - PCV) 10/19/1971 PHQ-2 (Physician [place]) 1977 Diabetes: Retinopathy Eye Exam 10/19/1983 Hepatitis [...] (#1) 2024 04/28/2021 Lipid Panel 04/18/2024 04/18/2023 PHQ-2 (Physician [place]) 07/08/2024 DTaP, Tdap and Td Vaccines ( 3 [...] Iniguez RN Medical Devices Implanted Type Area Pad Machine Feeder Device Identifier Shelf Expiration Date Model / Serial / Lot Sja Icd-08/14/2023 Implanted:Qty : 1 on 08/14/2023 by Lenin Cano MD ICD [facility] 05/07/2025 [id number] / [id number] / Rv Lead Pacemaker [facility] Dur[place]-08/14/19 24 Implanted:Qty : 1 on 08/14/2023 by Lenin Cano MD Lead Implant [facility] [id number] 01/04/2026 [id number] / [id number] / Ra Lead Implant- 024 Implanted:Qty : 1 on 08/14/2023 by Lenin Cano MD Lead Implant [facility] [id number] 05/07/2026 / [id number] / Lv Quartet Lead-Cs- 024 Implanted:Qty : 1 on 08/14/2023 by Lenin Cano MD Lead Implant [facility] [id number] 12/05/2025 1458Q-86 / [id number] / Procedures Procedure Name Priority Date/Time Associated Diagnosis Comments LIPID PANEL Routine 04/18/2023 4:00 AM CDT from Last 3 Months or Most Recently Relevant to Health Maintenance Results * LIPID PANEL (04/18/2023 4:00 AM CDT) CHOLESTEROL 165 <200 MG/DL 04/18/2023 4:32 AM CDT [facility] TRIGLYCERIDES 123 <150 MG/DL 04/18/2023 4:32 AM CDT [facility] HDL 52 >40.0 MG/DL 04/18/2023 4:32 AM CDT [facility] LDL (CALCULATED) 88 <100 MG/DL 04/18/20 4:32 AM CDT [facility] NON HDL CHOLESTEROL 113 <130 MG/DL 04/18 4:32 AM CDT [facility] Comment: NOTE: WHEN THE TRIGLYCERIDES ARE >200 mg/dL, NON HDL C IS A SECONDARY TARGET OF THERAPY, WITH A GOAL 30 mg/dL HIGHER THAN THE IDENTIFIED LDL C GOAL. CHOL/HDL RATIO 3.2 0.0 - 4.5 04/18/2023 4:32 AM CDT [facility] VLDL CALCULATION 25 5 - 55 MG/DL 04/18/2023 4:32 AM CDT [facility] LIPID INTERPRETATION 04/18/2023 4:32 AM CDT [facility] Comment: [facility] CONCENSUS REPORT RECOMMENDATIONS: ?ADULT ?CHILD ??LOW RISK: [...] Fidencio Tadeo APRN LABORATORY Final Re sult Performing Organization Address City/State/[facility] Co de Phone Number [facility] () [facility] [address] [place] [address], from Last 3 Months or Most Recently Relevant to Health Maintenance Additional Health Concerns Infection Onset Date Last Indicated MRSA Comment:08/13/23 juliocesar BARCENAS) 08/13/2023 08/13/2023 Insurance [facility] Advance Directives Documents on File Type Date Recorded Patient Electrical Manager Expl anation Power of Earth Moving Machine Operator 08/14/2023 SUBHASH DILL * Full Code (Latest Code Status on File) Date Activated Date Inactivated Comments 08/14/2023 6:02 PM 08/15/2023 3:20 PM * Full Code Date Activated Date Inactivated Comments 04/19/2023 2:46 PM 04/19/2023 7:59 PM * Full Code Date Activated Date Inactivated Comments 04/17/2023 3:58 PM 04/19/2023 1:15 PM Care Teams Air Cargo Specialist Supervisor Relationship Specialty Start Date End Date Kendy Mckeon MD [address] [place] [address] PCP - General FAMILY PRACTICE 05/30/18
--- OUTSIDE RECORDS SUMMARY | 2024-08-12 02:33 | XMS_ITS | Clinical Summary ---
Author Organization [facility] Address [address] [address] Care Team Providers Care Information Systems Professor Name Role Phone Unknown, Provider Primary Care Provider Unavaila ble Source Comments [facility],non-[facility] Affiliates and Associated Physician Practices is amultiple site organization consisting of ambulatory clinics and hospital sitesin [place], [place], [place] and [place]. This disclosure is being madepursuant to the Care Everywhere program and may not contain all information available regarding this patient. Last updated 18.[facility] Allergies Active Allergy Reactions Criticality Noted Date [...] age to complete this topic Care Teams Information Systems Professor Relationship Specialty Start Date End Date Unknown, Provider PCP - General 03/02/21
--- OUTSIDE RECORDS SUMMARY | 2024-08-12 02:33 | XMS_ITS | Patient Health Summary ---
Author Organization [facility] Address [address] [place] [address] Care Team Providers Care Ammunition Storage Superintendent Name Role Phone Unknown, Provider Primary Care Provider Unavaila ble Note from [facility],non-owned Affiliates and Associated Physician Practices is amultiple site organization consisting of ambulatory clinics and hospital sitesin [place], [place], [place] and [place]. This disclosure is being madepursuant to the Care Everywhere program and may not contain all information available regarding this patient. Last updated 18.[facility] [employer] Allergies * Minocycline(Rash) -Medium Criticality Medications * [...] 33.18 03/02/2021 12:33 PM CDT Care Teams Ammunition Storage Superintendent Relationship Specialty Start Date End Date Unknown, Provider PCP - General 03/02/21
--- OUTSIDE RECORDS SUMMARY | 2024-08-12 02:34 | XMS_ITS | Encounter Summary ---
Author Organization [facility] Address [address] [place] [address] Care Team Providers Care Museum Exhibit Designer Name Role Phone Kendy Mckeon MD Primary Care Provider [phone] Encounter Details Date Type Department Care Team (Latest Contact Info) Description 04/17/2023 Hospital Encounter Lynda Marti MD [address] [place] [address] Social History Tobacco Use Types Packs/Day Years Used Date Smoking Tobacco: Former Smokeless Tobacco: Never Alcohol Use Standard Drinks/Week Comments Yes 0 (1 standard drink = 0.6 oz pur e alcohol) occasional [facility] Utilities Answer Date Recorded In the past 12 months has [facility] [email or web address], gas, oil, or water [employer] threatened to shut off services in your [...] place to sleep or slept in a intermediate (including now)? No 08/14/2023 Comments No Sex [...] or climbing stairs? No 08/14/2023 6:26 PM TELEPHONE SUPERVISOR Colten Bustamante RN Active * Question Answer Date of [...] st Contact Info) Description 08/17/2024 9:50 AM TELEPHONE SUPERVISOR Allied Health/Nurse Visit [facility], [address] [address] Damian Martini MD [address] [facility]. [address] [place] [address] 09/15/2024 9:30 AM CDT Office Visit [facility], [address] [place] [address] Lenin Cano MD [address] [facility]. [address] [place] [address] 09/15/2024 10:00 AM CDT Office Visit [facility], [address] [place] [address] Rut Mercedes PA [address] [facility] [address] [place], [place] [address] documented as of this encounter Goals Goal [...] documented as of this encounter Care Teams Museum Exhibit Designer Relationship Specialty Start Date End Date Kendy Mckeon MD [address] [place] [address] PCP - General FAMILY PRACTICE 05/30/18 documented as of this encounter
--- NOTE | 2024-08-12 06:51 | WPDANESEPPF ---
Anes - Initial Pre Proc Eval Procedure: Operation Date: 08/12/24 07:30 Proposed Procedures p Right Total Knee Arthroplasty - Shamar Reyes MD Date/Time: 08/12/24 06:51 Surgeon: Shamar Reyes MD Pre Op Diagnosis: Rt Knee O.A. Patient Data Age: 58 Gender: F Height: 1.71 m Weight: 91.6 kg Last Vital Signs Temp 36.6 C 07/29/24 09:03 Pulse 70 07/29/24 09:03 Resp 18 07/29/24 09:03 BP 113/73 07/29/24 09:03 Pulse Ox 100 07/29/24 09:03 O2 Del Method Room Air 07/29/24 09:03 Allergies Allergy/AdvReac Type Severity Reaction Status Date / Time amoxicillin Allergy Unknown UPSET Verified 08/07/24 11:34 STOMACH clavulanic acid Allergy Unknown UPSET Verified 08/07/24 11:34 STOMACH minocycline Allergy Unknown Hives Verified 08/07/24 11:34 Home Medications ?Medication ?Instructions ?Recorded ?Confirmed ?Type blood sugar diagnostic (Blood #50 ea 10/09/22 07/31/24 Rx Glucose Test strips) blood-glucose meter (Accu-Chek #1 ea 10/09/22 07/31/24 Rx Guide Me Glucose Meter) fluticasone propionate 115 2 puff inhalation Q12H #8 grams 10/09/22 07/31/24 Rx mcg-salmeterol 21 mcg/actuation HFA inhaler (Advair HFA) blood sugar diagnostic (Blood #50 ea 10/10/22 07/31/24 Rx Glucose Test strips) blood-glucose meter #1 ea 10/10/22 07/31/24 Rx ipratropium 0.5 mg-albuterol 3 mg 3 ml inhalation QID PRN shortness 10/10/22 07/31/24 Rx (2.5 mg base)/3 mL nebulization of breath or wheezing #90 mL soln lancets (Accu-Chek Softclix #100 ea 10/10/22 07/31/24 Rx Lancets) Entresto 24 mg-26 mg tablet 1 tablet PO BID #60 tabs 04/25/23 07/31/24 Rx (sacubitril-valsartan) spironolactone 25 mg tablet 25 mg PO BID #60 tabs 04/26/23 07/31/24 Rx carvedilol 6.25 mg tablet 6.25 mg PO Q12H 10/17/23 07/31/24 History famotidine 40 mg tablet See Rx Instructions .Route 03/04/24 07/31/24 Rx .COMPLEX #30 tabs montelukast 10 mg tablet See Rx Instructions .Route 03/04/24 07/31/24 Rx .COMPLEX #90 tabs gabapentin 100 mg capsule 100 mg PO TID #90 caps 05/05/24 07/31/24 Rx clonazepam 1 mg tablet 1 mg PO DAILY PRN anxiety #30 tabs 05/25/24 07/31/24 Rx fluoxetine 40 mg capsule See Rx Instructions .Route 05/25/24 07/31/24 Rx .COMPLEX #30 caps semaglutide 0.25 mg or 0.5 mg (2 0.5 mg (0.736 mL) subcut WEEKLY #3 07/14/24 07/31/24 Rx mg/3 mL) subcutaneous pen injector mL (Ozempic) acetaminophen 650 mg 650 mg PO Q12H PRN pain 07/29/24 07/31/24 History tablet,extended release (Arthritis Pain Reliever) atorvastatin 10 mg tablet (Lipitor) 10 mg PO QPM 07/29/24 07/31/24 History chlorhexidine gluconate 4 % 1 applic topical ONCE #237 mL 07/29/24 07/31/24 Rx topical liquid (Hibiclens) cyanocobalamin (vitamin B-12) 1,000 mcg PO DAILY 07/29/24 07/31/24 History 1,000 mcg capsule Patient hx anesthesia problems: none Family hx anesthesia problems: none Results Review: All pre-operative results and documents have been reviewed as part of the pre-operative evaluation. [facility] Past Medical History Medical History Gastroesophageal reflux Depression Other fatigue Nonischemic cardiomyopathy Biventricular ICD (implantable cardioverter-defibrillator) in place CHF (congestive heart failure) ICD implant 2022 Pes planus of both feet Hallux rigidus of both feet Arthritis of foot, degenerative Acute asthma exacerbation Joint effusion Left knee DJD Right knee DJD Degenerative joint disease of knee Bilateral knee pain Anxiety Current mild episode of major depressive disorder Essential (primary) hypertension (12/01/15) Mixed hyperlipidemia Moderate asthma Type 2 diabetes mellitus without complications Surgical History Surgical History H/O toe surgery History of bilateral knee arthroplasty Family History Family History Father Lung cancer Sibling Non-Hodgkin lymphoma Other Family history of arthritis Family history of malignant neoplasm Hypertension Social History Social History Smoking status: Never smoker Second hand tobacco smoke exposure: No Additional smoking assessment comments: DENIES ANY FORM OF TOBACCO USE Alcohol intake: current Alcohol use details: ONE DRINK EVERY 2 WKS Substance use: current Substance use type: does not use Other substance usage details: edibles for knee pain Last use: 07/28/24 Lack of Transportation: No Lack of Food: Never True Current Housing: I Have Housing Concerned About Future Housing: No Difficulty Paying Gas/Electric Bills: No Difficulty Paying for Meds: No Currently Unemployed: No Education: Bachelor's Degree Difficulty w/ Childcare or Family Care: No Living arrangements: with family Occupation/Education: occupation Gender identity (if verbalized by the patient): Female Spiritual care concerns: No Anes - Eval Final PreProcedure Day of Procedure 08/12/24 06:51 Patient weight: obese Heart: regular rate and rhythm Lungs: clear to auscultation Airway: Mallampati scale class II Neurological: alert and oriented Last oral intake: >/= 8 hours ASA classification: IV Emergent: no Anesthetic plan: proceed Anesthesia type and monitoring: general LMA and standard monitoring Results Review: All pre-operative results and documents have been reviewed as part of the pre-operative evaluation. Informed Consent: The patient's anesthetic plan and its attendant risks and benefits were discussed with the patient/family/POA. Questions were solicited and answers provided to the satisfaction of the patient/family/POA.
[2024-08-12] MEDS: LACTATED RINGERS 1,000 ML 30 ML IV CONT ×2 (07:00→10:05)
[2024-08-12] MEDS: ACETAMINOPHEN 500 MG TABLET 1000 MG PO (07:00)
[2024-08-12] MEDS: TRANEXAMIC ACID 1,000MG/ISO100 1,000 MG/100 ML BAG 200 MG IVPB (07:00)
--- NOTE | 2024-08-12 07:02 | WPDHPUPDATE1 ---
History and Physical Update Update Date/Time: 08/12/24 07:02 History and Physical has been reviewed, including an updated exam of the patient. There are NO changes in the patient's condition. Risks, benefits, and alternatives have been discussed and questions answered. Patient agrees to proceed with procedure.
[2024-08-12 07:27] LABS: Glucose Point of Care 96 mg/dl (65-105)
[2024-08-12] MEDS: ceFAZolin 2 GM/D5W 50 ML 2 GM/50 ML BAG IVPB ×3 (07:33→23:34)
[2024-08-12] MEDS: SODIUM CHLORIDE 0.9% IV 37.7 ML, MORPHINE SULFATE INJ (*CRX) 2 MG, ROPivacaine HCL 1% 2... INFILTRATE (07:33)
--- NOTE | 2024-08-12 08:29 | WPDANESPNB ---
Anes - Peripheral Nerve Block Date/Time: 08/12/24 08:29 I have discussed with the patient/family/POA the placement of a peripheral nerve block for post-operative pain management, including associated risks, benefits, complications, and side effects. Alternative methods of post-operative analgesia were detailed. Questions were solicited and answers provided to the satisfaction of the patient/family/POA. Time-Out: A pre-procedural Time-Out was completed immediately before starting the procedure and confirmed: Patient Identification, Site, Procedure, Patient Position and the Availability of Requisite Equipment. Clinical Indications: Acute post-operative pain management requested by the operative surgeon. Nerve Block Insertion Note Anes-nerve block: adductor canal right Patient position: supine Skin prep: chlorhexidine Needle: 22 gauge, stimulating, insulated echogenic needle. Needle length: 80 mm Technique: ultrasound Technique comment: mid 2mg [id number] Injectate: bupivacaine 0.5% with epi 5 mcg/ml (30ml no epi) and dexamethasone (mg) (4) Observations: tolerated well Complications: none Procedure start time:: 717 Procedure end time:: 724
[2024-08-12] MEDS: TRANEXAMIC ACID 1,000 MG/10 ML AMPUL 1000 MG IV PUSH (09:00)
--- NOTE | 2024-08-12 10:08 | W.PM.PROC2 ---
Procedure Note - Detailed Date of Procedure 08/12/24 Pre-op Diagnosis Rt Knee O.A. Post-op Diagnosis Same Procedure Performed R TKA Surgeon Shamar Reyes MD Anesthesia General Description of Procedure THE RIGHT KNEE WAS PREPPED AND DRAPED IN THE STERILE FASHION. THERE WAS A 10 DEGREE FLEXION CONTRACTURE. A MIDLINE SKIN INCISION WAS MADE. A MEDIAL PARAPATELLAR ARTHROTOMY WAS MADE. THE PATELLA WAS EVERTED. THERE WAS TRICOMPARTMENT DJD. THERE WAS MINIMAL PATELLA DJD. AN INTRAMEDULLARY MUNDO WAS PLACED IN THE FEMUR. A DISTAL FEMORAL CUT WAS MADE IN 5 DEGREES OF VALGUS REMOVING APPROXIMATELY 8 MM OF BONE FROM THE DISTAL FEMUR. THE FEMUR WAS SIZED TO 4 A 4 FEMORAL CUTTING BLOCK WAS PLACED IN 3 DEGREES OF EXTERNAL ROTATION AND IN ALIGNMENT WITH DUSTY'S LINE AND THE TRANSEPICONDYLAR AXIS. ANTERIOR POSTERIOR AND CHAMFER CUTS WERE MADE. THE CUTS WERE EXCELLENT. NEXT AN INTRAMEDULLARY CUTTING GUIDE WAS PLACED IN THE TIBIA. A TRANS TIBIAL CUT WAS MADE ALONG THE LONG AXIS OF THE TIBIA. APPROXIMATELY 8 MM OF BONE WAS REMOVED FROM THE HIGH SIDE OF THE TIBIA. THE TIBIA WAS THEN PLANED TO A SMOOTH SURFACE. POSTERIOR FEMORAL OSTEOPHYTES WERE REMOVED FROM THE FEMORAL CONDYLES. A 3 TIBIAL TRIAL WAS PLACED IN ALIGNMENT WITH THE 1/3 MEDIAL ASPECT OF THE TIBIAL TUBERCLE. THEN A 4FEMORAL TRIAL COMPONENT WAS PLACED. BOTH HAD EXCELLENT FITS. EVENTUALLY A 9 MM CR POLYETHYLENE TRIAL COMPONENT WAS PLACED. THE KNEE WAS TAKEN THROUGH A RANGE OF MOTION. THE KNEE CAME OUT TO FULL EXTENSION. THERE WAS NO ABNORMAL TILT TO THE PATELLA. THERE WAS GOOD A/P AND VARUS/VALGUS STABILITY. THERE WAS NO EXCESSIVE ROLL BACK WITH FLEXION. THE TRIAL COMPONENTS WERE REMOVED. THEN A 4 FEMORAL COMPONENT AND 3 TIBIAL COMPONENT WITH A 9 CR POLYETHYLENE COMPONENT WERE PRESS FIT INTO PLACE. THE FT WAS EXCELLENT. THE KNEE WAS TAKEN THROUGH A ROM AGAIN AND FOUND TO BE STABLE WITH NO PATELLA TILT NO EXCESSIVE ROLL BACK WITH FLEXION AND GOOD STABILITY WITH COMPLETE AND FULL EXTENSION. THE KNEE WAS IRRIGATED WITH STERILE BETADINE AND WATER FOR ABOUT 3 MINUTES. THE BLEEDERS WERE CAUTERIZED. THE ARTHROTOMY WAS REPAIRED WITH NUMBER 1 VICRYL. THE SUB CUTANEOUS LAYER WITH 2-0 VICRYL AND THE SKIN WITH 3-0 STRATAFIX AND DERMABOND. THE WOUND WAS WASHED AND A STERILE DRESSING WAS APPLIED. PATIENT WAS EXTUBATED. Estimated Blood Loss 400 Pathology None sent Complications No immediate complications Condition Stable Disposition PACU
[2024-08-12] MEDS: fentaNYL CITRATE INJ (*CRX) 100 MCG/2 ML VIAL 25 MCG IV PUSH ×8 (10:19→12:14)
[2024-08-12 10:38] LABS: Glucose Point of Care 186 mg/dl (65-105)
[2024-08-12] MEDS: KETOROLAC 15 MG/ML VIAL (*BKC) IV PUSH ×4 (11:15→23:33)
[2024-08-12] MEDS: GENTAMICIN BONE CEMENT REFOBACIN 1 EACH TOPICAL (11:35)
--- NOTE | 2024-08-12 12:06 | SUR.PHASEI ---
Patient meets PACU discharge criteria, unit bed unavailable at this time. Patient placed in extended recovery status. [id number]
[2024-08-12] MEDS: polyethylene glycoL 3350 17 GM POWD.PACK PO (13:48)
[2024-08-12] MEDS: SODIUM CHLORIDE 0.9% IV 1,000 ML 125 ML IV CONT (13:49)
[2024-08-12] MEDS: HYDROmorphone HCL INJ (*CRX) 1 MG/ML SYR IV PUSH (13:49)
[2024-08-12] MEDS: SPIRONOLACTONE 25 MG TABLET PO ×2 (13:50→21:58)
[2024-08-12] MEDS: GABAPENTIN 100 MG CAPSULE PO ×2 (13:50→17:39)
[2024-08-12] MEDS: ASPIRIN 325 MG ENTERIC TABLET 650 MG PO (13:51)
[2024-08-12] MEDS: SENNA/DOCUSATE SODIUM TABLET 2 TAB PO ×2 (13:51→17:39)
[2024-08-12] MEDS: FAMOTIDINE 20 MG TABLET PO ×2 (13:51→21:58)
--- NOTE | 2024-08-12 14:12 | PCPTNOTE ---
Attempted to see patient for evaluation 1405 but patient unable to stay awake. Will follow.
--- NOTE | 2024-08-12 14:16 | ADMGEN ---
This patient, Antonia Crowe, was admitted to [facility] Surg Room 325-01. Patient/family oriented to hospital policies and general routines including ID bracelet, bed and alarms, visiting hours, pain management, procedures, bathroom and other care routines, personal items, smoking policy, room service/diet, and visiting hours. Information on how to activate the Rapid Response Team has been discussed. Patient/Family are encouraged to report perceived risks to care and to ask questions if they do not understand what they are told or what they should do.
[2024-08-12] MEDS: ATORVASTATIN 10 MG TABLET PO (17:39)
[2024-08-12 21:08] LABS: Glucose Point of Care 160 mg/dl (65-105)
[2024-08-12] MEDS: SACUBITRIL/VALSARTAN 24-26 MG TABLET 1 TAB PO (21:58)
[2024-08-12] MEDS: carvediloL 6.25 MG TABLET PO (21:58)
[2024-08-12] MEDS: GABAPENTIN 100 MG CAPSULE 200 MG PO (21:58)
[2024-08-12] MEDS: clonazePAM (*CRX) 0.5 MG TABLET 1 MG PO (21:58)
[2024-08-12] MEDS: oxyCODONE/ACETAMINOPHEN (*CRX) 10-325 MG TABLET 1 TAB PO (22:02)
[2024-08-13 02:27] VITALS: BP 102/58; PULSE 70; RESP 12; TEMP 36.4; O2SAT 96
[2024-08-13] MEDS: KETOROLAC 15 MG/ML VIAL (*BKC) IV PUSH ×2 (05:34→12:09)
[2024-08-13 05:53] VITALS: BP 101/58; PULSE 71; RESP 12; TEMP 36.9; O2SAT 97
[2024-08-13] MEDS: ceFAZolin 2 GM/D5W 50 ML 2 GM/50 ML BAG IVPB (06:26)
[2024-08-13 07:10] LABS: Basophils Percent Auto 0.1 % (0.2-1.2); Hematocrit 28.2 % (37.0-47.0); Hemoglobin 9.6 g/dL (12.0-15.0); Immature Granulocyte Absolute 0.05 K/mm3 (0.00-0.031); Immature Granulocyte Percent A 0.5 % (0-0.5); Lymphocytes Absolute Auto 1.06 K/mm3 (0.9-3.2); Lymphocytes Percent Auto 10.4 % (18.3-44.2); Mean Corpuscular Hemoglobin 32.5 pg (26-34); Mean Corpuscular Volume 95.6 fl (80-100); Mean Platelet Volume 8.9 fl (7.4-10.4); Monocytes Absolute Auto 1.1 K/mm3 (0.1-0.6); Monocytes Percent Auto 10.3 % (2.6-8.5); Neutrophils Percent Auto 78.7 % (45.5-73.1); Platelet Count Result 167 k/mm3 (150-375); Red Blood Count 2.95 M/mm3 (4.2-5.4); Red Cell Distribution Width 12.2 % (11.5-14.5); White Blood Count 10.2 K/mm3 (4.5-10.0)
[2024-08-13] MEDS: oxyCODONE/ACETAMINOPHEN (*CRX) 10-325 MG TABLET 1 TAB PO (07:17)
[2024-08-13 07:19] LABS: Anion Gap 6 mmol/L (4-12); Blood Urea Nitrogen 30 mg/dL (7-17); Calcium 8.1 mg/dL (8.4-10.2); Carbon Dioxide 26 mmol/L (22-30); Chloride 103 mmol/L (98-107); Estimated CRCL calculation 55 ml/min; Estimated Glomerular Filt Rate 48; Glucose 124 mg/dL (65-110); Potassium 4.2 mmol/L (3.4-5.0); Sodium 135 mmol/L (137-145)
[2024-08-13] MEDS: carvediloL 6.25 MG TABLET PO (08:14)
[2024-08-13] MEDS: SPIRONOLACTONE 25 MG TABLET PO (08:14)
[2024-08-13] MEDS: GABAPENTIN 100 MG CAPSULE PO (08:14)
[2024-08-13] MEDS: FAMOTIDINE 20 MG TABLET PO (08:14)
[2024-08-13] MEDS: SENNA/DOCUSATE SODIUM TABLET 2 TAB PO (08:14)
[2024-08-13] MEDS: ASPIRIN 325 MG ENTERIC TABLET 650 MG PO (08:14)
[2024-08-13] MEDS: SACUBITRIL/VALSARTAN 24-26 MG TABLET 1 TAB PO (08:14)
[2024-08-13] MEDS: polyethylene glycoL 3350 17 GM POWD.PACK PO (08:16)
[2024-08-13 10:53] VITALS: BP 88/58; PULSE 87; RESP 18; TEMP 36.6; O2SAT 100
--- NOTE | 2024-08-13 11:12 | PM.PNORT ---
Progress Note: A&P Assessment and Plan (1) S/P total knee arthroplasty: Qualifiers: Laterality: right Qualified Code(s): Z96.651 - Presence of right artificial knee joint Code(s): Z96.659 - Presence of unspecified artificial knee joint Status: Acute Assessment and Plan: POD #1 : Right TKA Continue PT/OT. WBAT. Walker. HIGH FALL RISK. Continue pain control. Ice Knee. Protect skin. DVT prophylaxis with Aspirin. SCDs. Incentive Spirometry Use reviewed. Monitor Dressing. Change prior to discharge. Bowel Regimen. Dispo: Home with Home Health pending progress with PT/OT Plan Reviewed history, exam, radiographs and current labs with attending MD and covering surgeon, Dr. Reyes, who agrees with current plan as indicated above. No further recommendations from Dr. Reyes at this time. Subjective Subjective Date/Time Seen: 08/13/24 11:12 Post Op day: 1 Interval history: POD#1: Right TKA Patient doing well. Pain well controlled. No new concerns. Hopeful for d/c home today. Review of Systems Review of Systems: All systems reviewed & are unremarkable except as noted in HPI and below Constitutional: Constitutional: Denies fever(s) and Denies headache(s) ENT: Denies headache(s) Cardiovascular: Cardiovascular: Denies chest pain, Denies diaphoresis, Denies palpitations and Denies dyspnea Respiratory: Respiratory: Denies dyspnea Gastrointestinal: Gastrointestinal: Denies abdominal pain, Denies constipation, Denies nausea and Denies vomiting Genitourinary: Genitourinary: Reports nocturia and Denies dysuria Musculoskeletal: Musculoskeletal: Reports arthralgias (Right Knee ) and Reports joint swelling (Right Knee ) Neurologic: Denies headache(s) Endocrine: Endocrine: Denies palpitations Exam Const: General: comfortable and no acute distress Resp: Effort & Inspection: normal respiratory effort Cardio: Rate: regular rate Rhythm: regular rhythm GI: GI Palp: Yes Soft to palpation, No Tenderness to palpation present (GI) and No Guarding due to palpation present (GI) Skin: General skin exam: wounds noted Wounds: wounds noted Other: Incision c/d/i. No surrounding redness/warmth. No hematoma. Mild ecchymosis. No wound dehiscence Neuro: Cognition (Neuro): normal cognition Other: NV intact aside from block. Moves toes. Sensation intact to light touch. +ankle dorsiflexion/plantarflexion. Extrem: Right lower extremity: normal to inspection, knee Details: tenderness (diffuse, mild ) Location: of the patella, swelling (diffuse, consistent with surgical intervention ), abnormal ROM Details: pain with active ROM during, pain with passive ROM during and with range as follows (limited due to recent surgical intervention ); able to extend lower leg actively and ecchymosis (mild ), lower leg (Negative Kobe's Sign ) Details: normal to inspection; no erythema and no tenderness, ankle (+ankle dorsiflexion/plantarflexion ) Details: normal to inspection, no edema and normal ROM; no tenderness, no swelling and no ecchymosis and foot Details: normal capillary refill, normal to inspection, vascular exam Details: dorsalis pedis pulse present and motor-sensory exam Details: light-touch normal; no tenderness Left lower extremity: normal to inspection Psych: Mental Status: mental status grossly normal Objective Data Vital Signs Vital Signs: Vital Signs - 24 hr 08/12/24 11:15 08/12/24 11:30 08/12/24 11:45 Temperature Pulse Rate 70 70 70 Respiratory Rate 14 16 14 Blood Pressure 103/71 111/75 103/66 Pulse Oximetry 98 98 98 Oxygen Delivery Nasal Cannula Nasal Cannula Nasal Cannula Oxygen Flow Rate 2 2 2 08/12/24 12:00 08/12/24 12:15 08/12/24 12:30 Temperature Pulse Rate 71 70 71 Respiratory Rate 13 11 L 14 Blood Pressure 106/69 101/71 102/72 Pulse Oximetry 99 99 Oxygen Delivery Nasal Cannula Nasal Cannula Nasal Cannula Oxygen Flow Rate 2 2 2 08/12/24 12:45 08/12/24 12:57 08/12/24 13:08 Temperature 37.0 C 36.4 C L Pulse Rate 70 70 70 Respiratory Rate 12 18 Blood Pressure 106/72 97/76 L 106/68 Pulse Oximetry 98 98 100 Oxygen Delivery Nasal Cannula Nasal Cannula Oxygen Flow Rate 2 2 08/12/24 13:23 08/12/24 13:53 08/12/24 14:53 Temperature 35.8 C L 36.4 C L 36.0 C L Pulse Rate 70 70 70 Respiratory Rate 18 18 18 Blood Pressure 93/71 L 97/61 L 95/65 L Pulse Oximetry 99 100 96 Oxygen Delivery Oxygen Flow Rate 08/12/24 17:10 08/12/24 20:00 08/12/24 21:58 Temperature Pulse Rate 80 Respiratory Rate Blood Pressure Pulse Oximetry 98 Oxygen Delivery Room Air Room Air Oxygen Flow Rate 08/12/24 22:26 08/13/24 02:27 08/13/24 05:53 Temperature 37.2 C 36.4 C 36.9 C Pulse Rate 78 70 71 Respiratory Rate 12 12 12 Blood Pressure 115/67 102/58 L 101/58 L Pulse Oximetry 100 96 97 Oxygen Delivery Oxygen Flow Rate 08/13/24 08:31 Temperature Pulse Rate Respiratory Rate Blood Pressure Pulse Oximetry Oxygen Delivery Room Air Oxygen Flow Rate Intake/Output Intake/Output: Intake & Output 08/10/24 08/11/24 08/12/24 08/13/24 23:59 23:59 23:59 23:59 Intake Total 790 290 Balance 790 290 Meds/Results Medications: Active Medications Generic Name Dose Route Start Last Admin Trade Name Freq PRN Reason Stop Dose Admin Acetaminophen 500 mg 08/12/24 13:08 Acetaminophen 500 Mg Tablet PO Q6H PRN Pain Rated 1-3 Aspirin 650 mg 08/12/24 13:08 08/13/24 08:14 Aspirin 325 Mg Enteric Tablet PO 650 mg DAILY TAJ Administration Atorvastatin Calcium 10 mg 08/12/24 18:00 08/12/24 17:39 Atorvastatin 10 Mg Tablet PO 10 mg QPM TAJ Administration Carvedilol 6.25 mg 08/12/24 21:00 08/13/24 08:14 Carvedilol 6.25 Mg Tablet PO 6.25 mg Q12H TAJ Administration Clonazepam 1 mg 08/12/24 13:08 08/12/24 21:58 Clonazepam (*Crx) 0.5 Mg Tablet PO 1 mg HS PRN Administration anxiety Diazepam 5 mg 08/12/24 13:08 Diazepam (*Crx) 5 Mg Tablet PO Q8H PRN Spasms Diphenhydramine HCl 25 mg 08/12/24 13:08 Diphenhydramine Hcl Inj 50 Mg/Ml Vial IV PUSH Q6H PRN Itching Famotidine 20 mg 08/12/24 13:08 08/13/24 08:14 Famotidine 20 Mg Tablet PO 20 mg Q12HR TAJ Administration Fluoxetine HCl 20 mg 08/12/24 13:08 Fluoxetine Hcl 20 Mg Capsule BY MOUTH .COMPLEX TAJ Gabapentin 200 mg 08/12/24 21:00 08/12/24 21:58 Gabapentin 100 Mg Capsule PO 200 mg HS TAJ Administration Gabapentin 100 mg 08/13/24 09:00 08/13/24 08:14 Gabapentin 100 Mg Capsule PO 100 mg QAM TAJ Administration Hydromorphone HCl 1 mg 08/12/24 13:08 08/12/24 13:49 Hydromorphone Hcl Inj (*Crx) 1 Mg/Ml Syr IV PUSH 1 mg Q2H PRN Administration Breakthrough Pain Rated 7-10 or NPO Hydromorphone HCl 0.5 mg 08/12/24 13:08 Hydromorphone Hcl Inj (*Crx) 1 Mg/Ml Syr IV PUSH Q2H PRN Breakthrough Pain Rated 4-6 or NPO Ibuprofen 800 mg in 200 mls @ 400 mls/hr 08/13/24 18:00 Caldolor 800 Mg/200 Ml IVPB Q6H PRN Breakthrough Pain Rated 1-3 or NPO Ketorolac Tromethamine 15 mg 08/12/24 13:08 08/13/24 05:34 Ketorolac 15 Mg/Ml Vial (*Bkc) IV PUSH 08/13/24 12:01 15 mg Q6HR TAJ Administration Naloxone HCl 0.1 mg 08/12/24 13:08 Naloxone Hcl 0.4 Mg/Ml Vial IV PUSH Q2M PRN Opiate Reversal Ondansetron HCl 4 mg 08/12/24 13:08 Ondansetron Inj 4 Mg/2 Ml Vial IV PUSH Q4H PRN Nausea And Vomiting Oxycodone/Acetaminophen 1 tablet 08/12/24 13:08 Oxycodone/Acetaminophen (*Crx) 5-325 Mg Tablet PO Q4H PRN Pain Rated 4-6 Oxycodone/Acetaminophen 1 tab 08/12/24 13:08 08/13/24 07:17 Oxycodone/Acetaminophen (*Crx) 10-325 Mg Tablet PO 1 tab Q6H PRN Administration Pain Rated 7-10 Polyethylene Glycol 17 gm 08/12/24 13:08 08/13/24 08:16 Polyethylene Glycol 3350 17 Gm Powd.Pack PO 17 gm QAM TAJ Administration Sacubitril/Valsartan 1 tab 08/12/24 13:08 08/13/24 08:14 Sacubitril/Valsartan 24-26 Mg Tablet PO 1 tab Q12HR TAJ Administration Senna/Docusate Sodium 2 tab 08/12/24 13:08 08/13/24 08:14 Senna/Docusate Sodium Tablet PO 2 tab BID TAJ Administration Spironolactone 25 mg 08/12/24 13:08 08/13/24 08:14 Spironolactone 25 Mg Tablet PO 25 mg Q12HR TAJ Administration Radiology Results: ITS Impressions Knee X-Ray 08/12/24 10:29 Impression: Status post total knee replacement, without evidence of hardware complication. Labs Labs: Laboratory Results - last 24 hr 08/12/24 08/13/24 21:05 06:53 WBC 10.2 H RBC 2.95 L Hgb 9.6 L D Hct 28.2 L MCV 95.6 MCH 32.5 MCHC 34.0 RDW 12.2 Plt Count 167 MPV 8.9 Immature Gran % (Auto) 0.5 Neut % (Auto) 78.7 H Lymph % (Auto) 10.4 L [place] % (Auto) 10.3 H Eos % (Auto) 0.0 Baso % (Auto) 0.1 L Lymph # (Auto) 1.06 [place] # (Auto) 1.1 H Eos # (Auto) 0.0 Baso # (Auto) 0.0 Abs Immat Gran (auto) 0.05 H Absolute Neuts (auto) 8.0 H Absolute Nucleated RBC 0.000 Nucleated RBC % 0.0 Sodium 135 L Potassium 4.2 Chloride 103 Carbon Dioxide 26 Anion Gap 6 BUN 30 H Creatinine 1.16 H Estim Creat Clear Calc 55 Estimated GFR 48 L Glucose 124 H POC Capillary Glucose 160 H Calcium 8.1 L Quality VTE Prophylaxis VTE prophylaxis: pharmacologic ordered
== END 2024-08-13 12:25 | disposition home health service (06) ==
LOC: ANHSURGERY 06:23 → ANH3MEDSUR 08-13 08:52
PROVIDERS: PCP Family Medicine; Visit Provider Orthopaedic Surgery
PROC: (CPT 27447; principal; 2024-08-12 07:30)
DX: M17.11 Unilateral primary osteoarthritis, right knee (principal); G89.18 Other acute postprocedural pain; E11.9 Type 2 diabetes mellitus without complications; Z79.85 Long-term (current) use of injectable non-insulin antidiabetic drugs; E66.9 Obesity, unspecified; Z68.31 Body mass index [BMI] 31.0-31.9, adult
CPT/HCPCS: 27447; 64447; 36415; 73560; 80048; 82948; 85025; 86850; 86900; 86901; 97110; 97161; 97165; 97530; 97535; A9270; C1713; C1776; J0171; J0690; J1100; J1171; J1885; J2003; J2250; J2270; J2405; J2704; J2795; J3010; J3370; J7030; J7120